=== PATIENT | male | born 1985 | race Caucasian/White ===

== ENCOUNTER 2022-09-10 22:14 | Emergency (ER) | payer BC ==
[~2022-09-10] VITALS: Ht 177.8 cm; Wt 136.1 kg
--- NOTE | 2022-09-10 22:36 | NUR ---
ER in triage examining patient.
--- NOTE | 2022-09-10 22:36 | NUR ---
Fahad andres in [facility] - 09/10/22 at 2301 by [email or web address] [email or web address] Hunt in triage examining patient.
[2022-09-10 22:43] VITALS: BP_SYST 162
[2022-09-10] MEDS ORDERED: cephALEXin 500 MG CAPSULE PO ONE (22:45)
[2022-09-10] MEDS ORDERED: KETOROLAC TROMETHAMINE 30 MG VIAL IM ONE (22:45)
[2022-09-10] MEDS ORDERED: IBUP-1969 PO (22:59)
[2022-09-10] MEDS ORDERED: CEPH-548 PO (22:59)
[2022-09-10 23:25] VITALS: BP_SYST 160
--- NOTE | 2022-09-10 23:25 | NUR ---
Patient given written and verbal discharge instructions and verbalizes understanding. ER MD discussed with patient the results and treatment provided. Patient in stable condition. Rx of Cephalexin and Ibuprofen sent to pharmacy of choice by ER MD. Patient educated on pain management and to follow up with PMD. Pain Scale 5/10. Opportunity for questions provided and answered.
== END 2022-09-10 23:25 | disposition home or self-care (01) ==
LOC: SED 22:14
DX: L03.115 Cellulitis of right lower limb (principal); Z79.899 Other long term (current) drug therapy; M79.671 Pain in right foot
CPT/HCPCS: 99283; 96372; J1885